=== PATIENT | female | born 1990 | race Two or more races ===

== ENCOUNTER 2020-11-21 13:15 | Inpatient (IN) | payer OTHER ==
[~2020-11-21] VITALS: Ht 157.5 cm; Wt 68.0 kg
[2020-12-02] MEDS ORDERED: PRENATAL CAPLE1 EAC1 (00:41)
== END 2020-12-04 10:45 | disposition home or self-care (01) | DRG 807 ==
LOC: LDR 12-01 23:59 → SURG-SUITE 12-02 16:14 → OB/GYN 12-09 13:15
PROVIDERS: ADMIT Obstetrics & Gynecology; ATTEND Obstetrics & Gynecology
PROC: 4A1HXFZ Monitoring of Products of Conception, Cardiac Rhythm, External Approach (ICD-10-PCS; 2020-12-01)
PROC: 10E0XZZ Delivery of Products of Conception, External Approach (ICD-10-PCS; principal; 2020-12-02)
PROC: 0HQ9XZZ Repair Perineum Skin, External Approach (ICD-10-PCS; 2020-12-02)
DX: O70.0 First degree perineal laceration during delivery (principal); Z37.0 Single live birth; Z3A.39 39 weeks gestation of pregnancy; Z20.822 Contact with and (suspected) exposure to COVID-19

== ENCOUNTER 2024-05-03 05:24 | Inpatient (IN) | payer OTHER ==
[2024-05-03] VITALS (10 sets, daily range): BP systolic 102–121; BP diastolic 60–76
[~2024-05-03] VITALS: Ht 157.5 cm; Wt 69.9 kg
[~2024-05-03 05:24] MED LIST: PRENATAL CAPLE1 EAC1
[2024-05-03] MEDS ORDERED: RINGERS SOLUTION,LACTATED 1,000 ML IV SCH (05:30)
[2024-05-03 06:51] LABS: HEMATOCRIT 37.3 % (36.0-45.00); HEMOGLOBIN 12.7 g/dL (12.0-15.00); MEAN CELL VOLUME 96.3 fL (80.00-100.00); MEAN CORPUSCULAR HEMOGLOBIN 32.7 pg (27.00-32.0); PLATELET COUNT 236 K/uL (150-450); RED BLOOD COUNT 3.87 M/uL (4.00-6.00); RED CELL DISTRIBUTION WIDTH 13.9 % (11.5-14.5)
[2024-05-03] MEDS ORDERED: OXYTOCIN 20 UNITS/500ML RL PIGGYBAG IV ONE (07:02)
[2024-05-03 07:15] LABS: INR < 0.93; PARTIAL THROMBOPLASTIN TIME 29.9 SECONDS (22.0-34.0); PROTHROMBIN TIME 10.2 SECONDS (9.0-11.5)
[2024-05-03 07:21] LABS: ALBUMIN 2.8 gm/dL (3.4-5.0); BILIRUBIN TOTAL 0.43 mg/dL (0.3-1.2); CALCIUM 8.6 mg/dL (8.5-10.1); CREATININE SERUM 0.52 mg/dL (0.55-1.02); GFR 134.19; GLOBULINA 3.3 G/DL (2.4-3.5); TOTAL PROTEIN 6.1 gm/dL (6.4-8.2)
[2024-05-03] MEDS ORDERED: OXYTOCIN 500 ML IV NR (07:30)
[2024-05-03] MEDS ORDERED: CITRIC ACID/SODIUM CITRATE 30 ML BLIST.PACK PO NR (07:30)
[2024-05-03 07:34] LABS: POTASSIUM 3.76 mEq/L (3.5-5.1)
[2024-05-03] MEDS ORDERED: CHLORHEXIDINE GLUCONATE 120 ML BOTTLE TOP ONE (10:19)
[2024-05-03] MEDS ORDERED: ERYTHROMYCIN BASE 1 GM TUBE OP ONE (10:19)
[2024-05-03] MEDS ORDERED: LIDOCAINE HCL 1% 10ML VIAL ONE (10:19)
[2024-05-03] MEDS ORDERED: OXYTOCIN 20 UNITS/1000ML RL PIGGYBAG IV ONE (10:19)
[2024-05-03] MEDS ORDERED: LIDOCAINE HCL 1% 10ML VIAL IJ ONE (13:05)
[2024-05-03] MEDS ORDERED: CHLORHEXIDINE GLUCONATE 120 ML BOTTLE TP SCH (13:30)
[2024-05-03] MEDS ORDERED: IBUprofen 400 MG TABLET PO PRN (13:30)
[2024-05-03] MEDS ORDERED: ERYTHROMYCIN BASE 1 GM TUBE OP SCH (13:30)
[2024-05-03] MEDS ORDERED: OXYTOCIN 1,000 ML IV ONE (13:30)
[2024-05-03] MEDS ORDERED: DOCUSATE SODIUM 100MG CAP PO SCH (17:00)
[2024-05-04] VITALS: BP 100/64
[2024-05-04 08:00] VITALS: BP 105/73
[2024-05-04] MEDS ORDERED: PNV,CALCIUM 72/IRON/FOLIC ACID 1 TAB TABLET PO SCH (09:00)
[2024-05-04 10:03] LABS: HEMATOCRIT 41.1 % (36.0-45.00); HEMOGLOBIN 13.8 g/dL (12.0-15.00); MEAN CELL VOLUME 95.9 fL (80.00-100.00); MEAN CORPUSCULAR HEMOGLOBIN 32.3 pg (27.00-32.0); MEAN CORPUSCULAR HGB CONC 33.7 g/dl (32.0-36.0); PLATELET COUNT 236 K/uL (150-450); RED BLOOD COUNT 4.28 M/uL (4.00-6.00); RED CELL DISTRIBUTION WIDTH 14.1 % (11.5-14.5)
[2024-05-04 15:55] VITALS: BP 101/66
[2024-05-05 01:16] VITALS: BP 100/62
[2024-05-05 09:31] VITALS: BP 109/73
[2024-05-05 11:05] VITALS: BP 107/75
== END 2024-05-05 12:40 | disposition home or self-care (01) | DRG 807 ==
LOC: OB/GYN 05:24 → LDR 05:24 → OB/GYN 15:13
PROVIDERS: Obstetrics & Gynecology; ADMIT Obstetrics & Gynecology; ATTEND Obstetrics & Gynecology
PROC: 10E0XZZ Delivery of Products of Conception, External Approach (ICD-10-PCS; principal; 2024-05-03)
PROC: 0HQ9XZZ Repair Perineum Skin, External Approach (ICD-10-PCS; 2024-05-03)
PROC: 4A1HXCZ Monitoring of Products of Conception, Cardiac Rate, External Approach (ICD-10-PCS; 2024-05-03)
DX: O70.0 First degree perineal laceration during delivery (principal); Z37.0 Single live birth; Z3A.40 40 weeks gestation of pregnancy; Z20.822 Contact with and (suspected) exposure to COVID-19